=== PATIENT | female | born 1960 | race Caucasian/White ===

== ENCOUNTER → 2020-05-09 14:26 | Outpatient (BNVA) | payer OTHER, SELFPAY | PROVIDERS: Visit Provider Nurse Practitioner Family | DX: S66.912A Strain of unspecified muscle, fascia and tendon at wrist and hand level, left hand, initial encounter (principal); X58.XXXA Exposure to other specified factors, initial encounter | CPT/HCPCS: 73120 ==

== ENCOUNTER → 2023-06-04 10:32 | Outpatient (BNVA) | payer OTHER, SELFPAY | PROVIDERS: PCP Nurse Practitioner; Visit Provider Nurse Practitioner | DX: M17.11 Unilateral primary osteoarthritis, right knee (principal); M25.551 Pain in right hip; M25.561 Pain in right knee | CPT/HCPCS: 73502; 73562 ==

== ENCOUNTER 2023-06-12 14:09 | Outpatient (CLI) | payer OTHER, SELFPAY ==
--- NOTE | 2023-06-12 14:30 | XR_ITS ---
WS: [id number] SCREENING DEXA SCAN [employer] CLINICAL INFORMATION: Z13.820 - Encounter for screening for osteoporosis COMPARISON: None. FINDINGS: The L1-L4 bone mineral density measures 1.182 g/cm2. This corresponds to a T score score of 0.0 and Z score of 1.5. Left femoral neck bone mineral density measures 0.774 g/cm2. This corresponds to a T score of -1.9 an d Z score of -0.7. Right femoral neck bone mineral density measures 0.821 g/cm2. This corresponds to a T score -1.5of an d Z score of -0.3. Mean femoral neck bone mineral density measures 0.798 g/cm2. This corresponds to a T score of -1.7 an d Z score of -0.5. IMPRESSION: Normal bone mineralization lumbar spine. Osteopenia femoral necks. Patient's FRAX calculated 10 year probability for major osteoporotic fracture is 12.9% and osteoporot ic hip fracture is 2.7%.
== END 2023-06-12 14:10 | disposition home or self-care (01) ==
LOC: RAD 14:10
PROVIDERS: PCP Nurse Practitioner; Visit Provider Nurse Practitioner
DX: Z13.820 Encounter for screening for osteoporosis (principal); M85.852 Other specified disorders of bone density and structure, left thigh; M85.851 Other specified disorders of bone density and structure, right thigh
CPT/HCPCS: 77080

== ENCOUNTER → 2023-07-28 13:11 | Outpatient (BNVA) | payer OTHER, SELFPAY | PROVIDERS: PCP Nurse Practitioner; Visit Provider Specialist | DX: M16.11 Unilateral primary osteoarthritis, right hip | CPT/HCPCS: 73502 ==

== ENCOUNTER 2023-08-19 12:25 | Outpatient (CLI) | payer OTHER, SELFPAY ==
--- NOTE | 2023-08-19 13:00 | MR_ITS ---
WS: [id number] MRI RIGHT HIP WITHOUT CONTRAST. COMPARISON: Radiograph 07/28/2023 Multiplanar, multisequence imaging is performed without contrast. History: Hip and back pain. IMPRESSION: No acute fractures. Symmetric appearance of the pelvis. There is bilateral narrowing of the hip joint s with mild diffuse loss of cartilage. RIGHT hip: Prominence of the superior lateral RIGHT acetabulum with coverage extending lateral over t he femoral head. There is increased T2 signal in the labrum consistent with a complex tear. Although very subtle there is marrow edema involving the anterior femoral head and neck junction. There is als o mild bony prominence. The bony prominence was better seen on the radiograph from 07/28/2023. This is probably due to femoral acetabular impingement. No muscle atrophy or edema. No free fluid or adenopathy in the pelvis. There is mild RIGHT lateral cu rvature of the lower lumbar spine that is included on this examination. IMPRESSION: 1. There is a triad of findings associated with femoral acetabular impingement. There is cartilage lo ss with a complex labral tear at the RIGHT hip with a small osseous bump at the femoral head and neck junction. The osseous protuberance is only minimal and better seen radiographically. 2. No fractures. 3. Bilateral mild osteoarthritis involving the hips.
== END 2023-08-19 12:26 | disposition home or self-care (01) ==
LOC: RAD 12:26
PROVIDERS: PCP Nurse Practitioner; Visit Provider Specialist
DX: S73.191A Other sprain of right hip, initial encounter (principal); X58.XXXA Exposure to other specified factors, initial encounter; M16.0 Bilateral primary osteoarthritis of hip
CPT/HCPCS: 73721